=== PATIENT | male | born 1990 | race African-American/Black ===

== ENCOUNTER 2017-05-25 21:12 | Emergency (ER) | payer OTHER ==
[2017-05-25 21:22] VITALS: BP 146/73; PULSE 107; BMI 22.3
--- NOTE | 2017-05-25 21:27 | PDOC ---
Rapid Medical Evaluation Chief Complaint: Cold Symptoms Time Seen by Provider: 05/25/17 21:21 Medical Evaluation: Allergies Allergy/AdvReac Type Severity Reaction Status Date / Time No Known Allergies Allergy Verified 03/10/12 10:49 Vital Signs Temp Pulse Resp BP Pulse Ox 102.7 F H 107 H 20 146/73 100 05/25/17 21:16 05/25/17 21:16 05/25/17 21:16 05/25/17 21:16 05/25/17 21:16 05/25/17 21:22 I have performed a brief in-person evaluation of this patient The Patient presents with a chief complaint of nausea and vomiting since 830pm. States has vietnamese chicken and rice since then with nausea and vomiting. Also reports chills and feeling feverish. Pertinent physical exam findings are: NAD unlabored breathing lungs clear tenderness to epigastrum I have ordered the following: labs, iv fluids ordered The patient will proceed to the ED for further evaluation.
[2017-05-25] MEDS ORDERED: ACETAMINOPHEN 500 MG TABLET (FP) PO ONE (21:28)
[2017-05-25 21:39] LABS: BASOPHIL 0.5 % (0-2.0); MCH 32.6 pg (25.7-33.7); MCHC 34.9 g/dl (32.0-35.9); MEAN CELL VOLUME 93.2 fl (80-96); MEAN PLT VOLUME 9.1 fl (7.5-11.1); NEUTROPHILS 85.9 % (42.8-82.8); PLATELET COUNT 169 K/MM3 (134-434); RDW 12.3 % (11.9-15.9)
--- NOTE | 2017-05-25 22:02 | PDOC ---
History of Present Illness - General Chief Complaint: Cold Symptoms Stated Complaint: VOMITING/WEAK Time Seen by Provider: 05/25/17 21:21 History Source: Patient Exam Limitations: No Limitations - History of Present Illness Initial Comments: 26 YOM with h/o childhood asthma and cervical fusion for traumatic c-spine fxr in 2008, presents with productive cough and runny nose for a week, with additional onset of nausea and vomiting x4 since tonight at 8:30 pm. There was a small amount of blood in the second episode of emesis but otherwise only food. He additionally had an onset of fever, chills, myalgias, and generalized malaise tonight at 8:30 concurrent with onset of n/v. His children have both been ill with cough/URI sxs. He denies diarrhea, constipation, black/bloody stool, or abdominal pain. He did not get a flu shot this year. He ate greek food this afternoon and initially thought this was the cause of the n/v. He smokes 1/2 PPD. Past History - Past Medical History Allergies/Adverse Reactions: Allergies Allergy/AdvReac Type Severity Reaction Status Date / Time No Known Allergies Allergy Verified 05/25/17 23:35 Home Medications: Ambulatory Orders No Home Medications 0 dose .ROUTE UTDICT 03/10/12 Mag Hydrox/Alh/Smc/Dpha/Lido [Magic Mouthwash *Sjr Formula*] 240 ml MM PRN #1 bottle 04/06/12 Azithromycin 250 mg PO DAILY #4 tablet 05/26/17 - Suicide/Smoking/Psychosocial Hx Smoking Status: Yes Smoking History: Current some day smoker Have you smoked in the past 12 months: Yes Number of Cigarettes Smoked Daily: 5 Information on smoking cessation initiated: No Hx Alcohol Use: No Drug/Substance Use Hx: No Review of Systems - Review of Systems Able to Perform ROS?: Yes Is the patient limited Green[place]ic proficient: Yes Constitutional: Yes: Chills, Fever. No: Unexplained wgt Loss HEENTM: Yes: Nose Congestion. No: Throat Pain Respiratory: Yes: Cough, Productive cough. No: Shortness of Breath Cardiac (ROS): No: Chest Pain, Palpitations ABD/GI: Yes: Nausea, Vomiting. No: Constipated, Diarrhea : No: Burning, Dysuria Musculoskeletal: No: Back Pain, Neck Pain Integumentary: No: Bruising, Rash Neurological: No: Headache, Numbness, Tingling, Weakness, Dizziness Endocrine: No: Unexplained Weight Gain, Unexplained Weight Loss *Physical Exam - Vital Signs Last Vital Signs Temp Pulse Resp BP Pulse Ox 102.7 F H 107 H 20 146/73 100 05/25/17 21:16 05/25/17 21:16 05/25/17 21:16 05/25/17 21:16 05/25/17 21:16 - Physical Exam General Appearance: Yes: Nourished, Appropriately Dressed, Mild Distress, Other (uncomfortable appearing young adult male but appears only mildly toxic, answering appropriately, mentating well, accompanied by mother at bedside) HEENT: positive: EOMI, BENITO, Normal Voice, Pharyngeal Erythema (mild), Hearing Grossly Normal. negative: Scleral Icterus (R), Scleral Icterus (L), Nasal Congestion Neck: positive: Trachea midline, Supple. negative: Tender, Rigid Respiratory/Chest: positive: Crackles, Rales, Wheezing (mild). negative: Respiratory Distress, Rhonchi, Stridor Cardiovascular: positive: Regular Rhythm, Regular Rate, Other (rate wnl at the time of my exam). negative: Murmur Gastrointestinal/Abdominal: positive: Normal Bowel Sounds, Soft, Increased Bowel Sounds. negative: Tender, Organomegaly, Pulsatile Mass, Guarding Musculoskeletal: positive: Normal Inspection. negative: Decreased Range of Motion, Vertebral Tenderness Extremity: positive: Normal Capillary Refill, Normal Inspection, Normal Range of Motion. negative: Tender, Cyanosis Integumentary: positive: Normal Color, Dry, Warm. negative: Erythema, Rash, Bruising Neurologic: positive: physician assistant II-XII NML intact, Fully Oriented, Alert, Normal Mood/ Affect, Normal Response, Motor Strength 5/5 ED Treatment Course - LABORATORY CBC & Chemistry Diagram: 05/25/17 21:35 05/25/17 21:35 - ADDITIONAL ORDERS Additional order review: 05/25/17 21:35 RBC 4.68 MCV 93.2 MCHC 34.9 RDW 12.3 MPV 9.1 Neutrophils % 85.9 H Lymphocytes % 10.4 Monocytes % 2.2 L Eosinophils % 1.0 Basophils % 0.5 - RADIOLOGY Radiology Studies Ordered: Category Date Time Status CHEST PA & LAT [RAD] Stat Radiology 05/25/17 21:55 Ordered Medical Decision Making - Medical Decision Making On exam he has bilateral prominent crackles and mild expiratory wheezing, mild posterior pharyngeal erythema. DDX IBNLT viral URI, viral gastroenteritis, influenza, PNA, bronchitis, food poisoning. Per [facility] criteria the patient does not require throat culture for Strep. He has been ill with productive cough for a week but new n/v/myalgias, may benefit from Tamiflu if Flu+. *DC/Admit/Observation/Transfer Diagnosis at time of Disposition: URI (upper respiratory infection) Qualifiers: URI type: unspecified viral URI Qualified Code(s): J06.9 - Acute upper respiratory infection, unspecified; B97.89 - Other viral agents as the cause of diseases classified elsewhere; B97.89 - Other viral agents as the cause of diseases classified elsewhere Nausea and vomiting Qualifiers: Vomiting type: unspecified Vomiting Intractability: non-intractable Qualified Code(s): R11.2 - Nausea with vomiting, unspecified - Discharge Dispostion Disposition: HOME Condition at time of disposition: Guarded Admit: No - Prescriptions Prescriptions: Azithromycin 250 mg PO DAILY #4 tablet - Referrals Referrals: Valentin Hanson MD [Primary Care Provider] - - Patient Instructions Additional Instructions: You were seen in the ER for nausea and vomiting in the setting of a recent upper respiratory infection. We did blood work and a chest x-ray and there were no concerning findings. We did give you a dose of Azithromycin in the ER and are also sending a prescription for this to your pharmacy. Please take the whole course of antibiotic even if you feel better. Follow up with your regular doctor or return to the ER for new or worsening symptoms, especially if you cannot keep down fluids, or if you have severe headache, abdominal pain, blood in the vomit or stool (more than just light streaks of blood), or other symptoms. - Post Discharge Activity
[2017-05-25 22:09] LABS: ALBUMIN 4.1 g/dl (3.4-5.0); ALK PHOS 72 U/L (45-117); ANION GAP 5 (8-16); BILIRUBIN,TOTAL 0.6 mg/dL (0.2-1.0); CALCIUM 8.8 mg/dL (8.5-10.1); CO2 31 mmol/L (21-32); CREATININE 0.9 mg/dL (0.7-1.3); GLUCOSE,RANDOM 104 mg/dL (74-106); SGOT/AST 18 U/L (15-37); SGPT/ALT 24 U/L (12-78); TOT PROT 7.4 g/dl (6.4-8.2)
[2017-05-25] MEDS ORDERED: AZITHROMYCIN 250 MG TABLET PO ONE (22:48)
[2017-05-25] MEDS ORDERED: AZITHROMYCIN 250 MG TABLET ONE (23:27)
[2017-05-25] MEDS ORDERED: ACETAMINOPHEN 325 MG TABLET (FP) ONE (23:27)
[2017-05-26 00:29] VITALS: TEMP 99
== END 2017-05-26 01:31 | disposition home or self-care (01) ==
LOC: JER 21:12
DX: J06.9 Acute upper respiratory infection, unspecified (principal); B97.89 Other viral agents as the cause of diseases classified elsewhere; F17.210 Nicotine dependence, cigarettes, uncomplicated
CPT/HCPCS: 36415; 71020-TC; 80053; 85025; 87804; 99281-25